=== PATIENT | female | born 1995 | race African-American/Black ===

== ENCOUNTER 2023-07-15 08:38 | Observation (INO) | payer OTHER ==
[2023-07-15 09:02] VITALS: BMI 45.4
[2023-07-15] MEDS ORDERED: FAMOTIDINE 20 MG/50 ML IVPB 20 MG/50 ML MG IVPB ONE (09:54)
[2023-07-15] MEDS ORDERED: SODIUM CHLORIDE 0.9% 500 ML INFUS.BAG IV ONE (09:54)
[2023-07-15] MEDS ORDERED: ACETAMINOPHEN 1000 MG/100 ML BAG IVPB ONE (09:54)
[2023-07-15] MEDS ORDERED: MAG HYDROX/AL HYDROX/SIMETH 30 ML UNIT-DOSE CUP PO ONE (09:54)
[2023-07-15 10:31] LABS: BASO % 0.9 % (0-2.0); EOS % 0.6 % (0-4.5); HEMATOCRIT 34.7 % (32.4-45.2); HEMOGLOBIN 11.1 GM/dL (10.7-15.3); LYMPH % 28.3 % (8-40); MCH 22.4 pg (25.7-33.7); MEAN CELL VOLUME 69.9 fl (80-96); MEAN PLT VOLUME 8.8 fl (7.5-11.1); MONO % 4.3 % (3.8-10.2); NEUT % 65.9 % (42.8-82.8); PLATELET COUNT 368 10^3/uL (134-434); RBC 4.96 M/mm3 (3.60-5.2); RDW 17.5 % (11.6-15.6)
[2023-07-15 10:46] LABS: POTASSIUM 4.4 mmol/L (3.5-5.1)
[2023-07-15 10:48] LABS: CALCIUM 9.5 mg/dL (8.5-10.1)
[2023-07-15 10:49] LABS: ALBUMIN 3.5 g/dl (3.4-5.0); BLOOD UREA NITROGEN 8.8 mg/dL (7-18)
[2023-07-15 10:51] LABS: URINE APPEARANCE CLEAR; URINE BILIRUBIN NEGATIVE (NEGATIVE); URINE COLOR YELLOW; URINE GLUCOSE (UA) NEGATIVE (NEGATIVE)
[2023-07-15 10:52] LABS: CREATININE 0.6 mg/dL (0.55-1.3); URINE KETONE NEGATIVE (NEGATIVE); URINE PROTEIN 1+ (NEGATIVE); URINE UROBILINOGEN 0.2 mg/dL (0.2-1.0)
[2023-07-15 10:53] LABS: URINE LEUK ESTERASE TRACE (NEGATIVE); URINE NITRITE NEGATIVE (NEGATIVE)
[2023-07-15 10:54] LABS: BILIRUBIN,TOTAL 0.4 mg/dL (0.2-1); TOT PROT 7.4 g/dl (6.4-8.2)
[2023-07-15 10:57] LABS: EPI CELLS FEW /uL (0-25.1); URINE RBC 0-3 /uL (0-23.9)
[2023-07-15] MEDS ORDERED: ONDANSETRON 4 MG/2 ML VIAL IVPUSH ONE (11:17)
[2023-07-15] MEDS ORDERED: MECLIZINE HCL 25 MG TABLET (FP) PO PRN (14:00)
[2023-07-15] MEDS ORDERED: VALSARTAN 40 MG TABLET PO ONE (14:14)
[2023-07-15] MEDS ORDERED: VALSARTAN 80 MG TABLET ONE (14:37)
[2023-07-15] MEDS: INSULIN ASPART SLIDING SCALE (NOVOLOG) 1 VIAL SQ SCH ×2 (16:44→21:14)
[2023-07-15] MEDS: ACETAMINOPHEN 500 MG TABLET (FP) PO PRN (17:50)
[2023-07-15] MEDS: LABETALOL HCL 200 MG TABLET (FP) PO SCH (21:16)
[2023-07-15] MEDS ORDERED: ATORVASTATIN CA 10 MG TABLET (FP) PO SCH (22:00)
[2023-07-15 23:00] VITALS: RESP 18
[2023-07-16] MEDS: INSULIN ASPART SLIDING SCALE (NOVOLOG) 1 VIAL SQ SCH ×4 (06:56→21:37)
[2023-07-16 08:20] LABS: BASO % 0.3 % (0-2.0); EOS % 0.9 % (0-4.5); HEMATOCRIT 32.8 % (32.4-45.2); HEMOGLOBIN 10.7 GM/dL (10.7-15.3); LYMPH % 27.3 % (8-40); MCH 22.5 pg (25.7-33.7); MCHC 32.5 g/dl (32.0-36.0); MEAN CELL VOLUME 69.3 fl (80-96); MEAN PLT VOLUME 8.9 fl (7.5-11.1); MONO % 3.8 % (3.8-10.2); NEUT % 67.7 % (42.8-82.8); PLATELET COUNT 286 10^3/uL (134-434); RBC 4.74 M/mm3 (3.60-5.2); RDW 17.4 % (11.6-15.6); WHITE BLOOD COUNT 7.8 K/mm3 (4.0-10.0)
[2023-07-16 08:44] LABS: POTASSIUM 4.1 mmol/L (3.5-5.1)
[2023-07-16 08:52] LABS: ALBUMIN 3.1 g/dl (3.4-5.0)
[2023-07-16 08:53] LABS: BLOOD UREA NITROGEN 5.2 mg/dL (7-18); MAGNESIUM 1.9 mg/dL (1.8-2.4)
[2023-07-16 08:55] LABS: PHOSPHOROUS 2.8 mg/dL (2.5-4.9)
[2023-07-16 08:56] LABS: CREATININE 0.5 mg/dL (0.55-1.3)
[2023-07-16 08:57] LABS: BILIRUBIN,TOTAL 0.6 mg/dL (0.2-1)
[2023-07-16 08:59] LABS: CHOLESTEROL 150 mg/dL (50-200)
[2023-07-16 09:03] LABS: HDL CHOLESTEROL 35 mg/dL (40-60); LDL CHOLESTEROL (ONLY SJRH) 95 mg/dL (5-100); TOT PROT 6.6 g/dl (6.4-8.2)
[2023-07-16] MEDS: LABETALOL HCL 200 MG TABLET (FP) PO SCH (09:58)
[2023-07-16] MEDS: ENOXAPARIN NA (PORCINE) 40 MG/0.4 ML DISP.SYRIN SQ SCH (09:58)
[2023-07-16] MEDS ORDERED: SODIUM CHLORIDE 0.45% 1,000 ML IV SCH (14:45)
[2023-07-16] MEDS ORDERED: amLODIPine BESYLATE 5 MG TABLET (FP) PO ONE ×2 (15:40→18:19)
[2023-07-16] MEDS ORDERED: ATORVASTATIN CA 20 MG TABLET (FP) PO SCH (15:50)
[2023-07-16] MEDS ORDERED: LABETALOL HCL 200 MG TABLET (FP) PO SCH (19:02)
[2023-07-16] MEDS: LABETALOL HCL 100 MG, LABETALOL HCL 200 MG PO SCH (21:31)
[2023-07-17] MEDS: ACETAMINOPHEN 500 MG TABLET (FP) PO PRN ×2 (03:12→08:16)
[2023-07-17] MEDS: INSULIN ASPART SLIDING SCALE (NOVOLOG) 1 VIAL SQ SCH (06:27)
[2023-07-17 07:18] LABS: HEMATOCRIT 36.3 % (32.4-45.2); HEMOGLOBIN 11.5 GM/dL (10.7-15.3); MCH 22.1 pg (25.7-33.7); MCHC 31.8 g/dl (32.0-36.0); MEAN CELL VOLUME 69.6 fl (80-96); MEAN PLT VOLUME 8.8 fl (7.5-11.1); PLATELET COUNT 318 10^3/uL (134-434); RBC 5.22 M/mm3 (3.60-5.2); RDW 17.2 % (11.6-15.6); WHITE BLOOD COUNT 8.7 K/mm3 (4.0-10.0)
[2023-07-17 07:35] LABS: POTASSIUM 4.2 mmol/L (3.5-5.1)
[2023-07-17 07:43] LABS: ALBUMIN 3.5 g/dl (3.4-5.0); BLOOD UREA NITROGEN 5.3 mg/dL (7-18); CALCIUM 9.2 mg/dL (8.5-10.1)
[2023-07-17 07:46] LABS: CREATININE 0.5 mg/dL (0.55-1.3)
[2023-07-17 07:47] LABS: BILIRUBIN,TOTAL 0.7 mg/dL (0.2-1); TOT PROT 7.4 g/dl (6.4-8.2)
[2023-07-17 09:03] VITALS: BP 143/79; PULSE 64; TEMP 97.7
[2023-07-17] MEDS: ENOXAPARIN NA (PORCINE) 40 MG/0.4 ML DISP.SYRIN SQ SCH (09:34)
[2023-07-17] MEDS: LABETALOL HCL 100 MG, LABETALOL HCL 200 MG PO SCH (09:34)
[2023-07-17] MEDS ORDERED: amLODIPine BESYLATE 5 MG TABLET (FP) PO SCH ×2 (10:00)
== END 2023-07-17 11:48 | disposition home or self-care (01) ==
LOC: JER 08:38 → JERBED 13:27 → J4W 16:42
PROVIDERS: ADMIT Internal Medicine; ATTEND Internal Medicine
PROC: 3E023GC Introduction of Other Therapeutic Substance into Muscle, Percutaneous Approach (ICD-10-PCS; principal; 2023-07-15)
PROC: 3E033GC Introduction of Other Therapeutic Substance into Peripheral Vein, Percutaneous Approach (ICD-10-PCS; 2023-07-15)
PROC: 3E0337Z Introduction of Electrolytic and Water Balance Substance into Peripheral Vein, Percutaneous Approach (ICD-10-PCS; 2023-07-15)
DX: I16.0 Hypertensive urgency (principal); E11.9 Type 2 diabetes mellitus without complications; E78.5 Hyperlipidemia, unspecified; I10 Essential (primary) hypertension; Z91.148 Patient's other noncompliance with medication regimen for other reason; R55 Syncope and collapse; R42 Dizziness and giddiness; Z29.89 Encounter for other specified prophylactic measures; Z88.6 Allergy status to analgesic agent; Z88.8 Allergy status to other drugs, medicaments and biological substances
CPT/HCPCS: 0241U-QW; 36415; 70450-TC; 71046-TC-FY; 80053; 80061; 81003; 82962; 83036; 83735; 84100; 84443; 84484; 84703; 85025; 85027; 87086; 93005; 93010; 93306-TC; 96365; 96372; 97116-GP; 97162-GP; 99285-25; G0378

== ENCOUNTER 2025-03-20 21:08 | Emergency (ER) | payer OTHER ==
[2025-03-20 21:20] VITALS: BP 138/92; PULSE 87; RESP 18; TEMP 97.9; BMI 39.9
[2025-03-20] MEDS ORDERED: ACETAMINOPHEN INJECTION 100 ML ONE (21:51)
[2025-03-20] MEDS ORDERED: ONDANSETRON 4 MG/2 ML VIAL ONE (21:51)
[2025-03-20] MEDS ORDERED: ONDANSETRON *ODT* 4 MG TABLET ONE (22:18)
[2025-03-20 22:27] LABS: ABSOLUTE IMMATURE GRANULOCYTES 0.03 x10^3/uL (0.0-0.031); BASOPHILS # 0.02 x10^3/uL (0.01-0.08); EOSINOPHIL % 0.6 % (0.7-5.8); EOSINOPHILS # 0.05 x10^3/uL (0.04-0.36); MCHC 31.5 g/dl (32.2-35.5); MEAN CELL VOLUME 69.7 fl (79.4-94.8); MEAN PLT VOLUME 10.9 fl (9.4-12.3); MONOCYTE # 0.38 x10^3/uL (0.24-0.86); MONOCYTE % 4.3 % (4.7-12.5); RDW 14.2 % (12.1-16.8)
[2025-03-20] MEDS: ACETAMINOPHEN 1000 MG/100 ML BAG IVPB ONE (22:44)
[2025-03-20] MEDS: ONDANSETRON 4 MG/2 ML VIAL IVPB ONE (22:45)
[2025-03-20 22:54] LABS: GLUCOSE,RANDOM 145.0 mg/dL (74-106)
[2025-03-20 22:55] LABS: TOT PROT 7.7 g/dl (6.4-8.2)
[2025-03-20 22:56] LABS: CO2 27.0 mmol/L (21-32)
[2025-03-20 22:57] LABS: ALK PHOS 75.0 U/L (40-150)
[2025-03-20 23:00] LABS: CREATININE 0.71 mg/dL (0.55-1.3); SGOT/AST 30.0 U/L (5-34); SGPT/ALT 48.0 U/L (0-55)
[2025-03-20] MEDS: KETOROLAC TROMETHAMINE 15 MG/ML VIAL IVPUSH ONE (23:30)
[2025-03-20] MEDS ORDERED: KETOROLAC TROMETHAMINE 15 MG/ML VIAL ONE (23:36)
== END 2025-03-21 | disposition home or self-care (01) ==
LOC: JER 21:08
PROC: 3E033NZ Introduction of Analgesics, Hypnotics, Sedatives into Peripheral Vein, Percutaneous Approach (ICD-10-PCS; principal; 2025-03-20)
PROC: 3E0333Z Introduction of Anti-inflammatory into Peripheral Vein, Percutaneous Approach (ICD-10-PCS; 2025-03-20)
PROC: 3E033GC Introduction of Other Therapeutic Substance into Peripheral Vein, Percutaneous Approach (ICD-10-PCS; 2025-03-20)
DX: R55 Syncope and collapse (principal); R11.10 Vomiting, unspecified; R07.89 Other chest pain
CPT/HCPCS: 36415; 71045-TC-FY; 80053; 82962; 84484; 84703; 85025; 93005; 93010; 99285-25